=== PATIENT | male | born 1975 | race Caucasian/White ===

== ENCOUNTER 2019-04-22 12:27 | Emergency (ER) | payer OTHER ==
--- NOTE | 2019-04-22 12:44 | PDOC ---
Rapid Medical Evaluation Time Seen by Provider: 04/22/19 12:43 Medical Evaluation: Allergies Allergy/AdvReac Type Severity Reaction Status Date / Time No Known Allergies Allergy Verified 08/12/16 17:20 04/22/19 12:43 I have performed a brief in-person evaluation of this patient. The patient presents with a chief complaint of:Lower back and b/l LE pain x 3 days. No trauma. No neuro sxs. No infectious sxs. No pmhx Pertinent physical exam findings: Unremarkable I have ordered the following:nothing The patient will proceed to the ED for further evaluation. Discharge Disposition - Diagnosis Acute pain of left lower extremity - Referrals - Patient Instructions - Post Discharge Activity
[2019-04-22 12:46] VITALS: BP 142/68; PULSE 70; TEMP 97.8; BMI 26.4
[2019-04-22] MEDS ORDERED: KETOROLAC TROMETHAMINE 60 MG/2 ML VIAL ONE (13:18)
[2019-04-22] MEDS ORDERED: KETOROLAC TROMETHAMINE 60 MG/2 ML VIAL IM ONE (13:18)
--- NOTE | 2019-04-22 13:22 | PDOC ---
History of Present Illness - General Chief Complaint: Pain Stated Complaint: PAIN Time Seen by Provider: 04/22/19 12:43 History Source: Patient Exam Limitations: No Limitations - History of Present Illness Initial Comments: 04/22/19 13:22 CHIEF COMPLAINT: Lower back pain HISTORY OF PRESENT ILLNESS: This is a 43-year-old male denies medical history presents emergency Department with 3 days of lower back pain radiating to bilateral lower extremities. Patient reports the pain in his right leg stopped radiating yesterday and now the pain focuses on his left lower extremity. Been taking Tylenol and Motrin with relief of symptoms at home. He denies any urinary retention, incontinence of bladder or bowel, saddle anesthesia, foot drop, history of IV drug use or cancer. Patient denies any recent trauma. REVIEW OF SYSTEMS: GENERAL: Afebrile, denies any weakness RESPIRATORY: No cough, wheezing, or hemoptysis. CARDIAC: No chest pain or shortness of breath MUSCULOSKELETAL: Pain to generalized lower back. No point tenderness. Pain worse on left than right. SKIN : No erythema, no bruising, no deformity. GI/: Denies any abdominal pain, no urinary difficulty, incontinence or urinary retention. RECTAL: Denies any difficulty this A.m. NEUROLOGICAL: Denies any numbness or tingling. No neurosensory deficits. PHYSICAL EXAM: GENERAL: The patient is awake, alert, and fully oriented, in no acute distress. RESPIRATORY: Lungs clear bilaterally, no rhonchi wheezes or crackles CARDIAC: S1-S2 audible, no murmur rub or gallop MUSCULOSKELETAL: Pain to generalized lower back, nonradiating, no tingling or sensory deficit. Less than 2 second cap refill, +2 pedal pulses. No spinal point tenderness. Normal reflexive and no deficits to sensation or strength. GI/: Abdomen soft, nontender, nondistended. No rebound tenderness. No masses palpable. RECTAL: Deferred patient with no neurological findings SKIN: Warm, Dry, normal turgor, no erythema, no edema no bruising. Past History - Past Medical History Allergies/Adverse Reactions: Allergies Allergy/AdvReac Type Severity Reaction Status Date / Time No Known Allergies Allergy Verified 04/22/19 12:46 Home Medications: Ambulatory Orders Ibuprofen 600 mg PO TID #21 tablet 08/12/16 Methylprednisolone [Medrol Dose Blayne] 4 mg PO ASDIR #21 tablet 04/22/19 COPD: No - Surgical History Abdominal Surgery: No - Suicide/Smoking/Psychosocial Hx Smoking History: Never smoked Have you smoked in the past 12 months: No Information on smoking cessation initiated: No Hx Alcohol Use: No Drug/Substance Use Hx: No Substance Use Type: None *Physical Exam - Vital Signs Last Vital Signs Temp Pulse Resp BP Pulse Ox 97.8 F 70 16 142/68 100 04/22/19 12:44 04/22/19 12:44 04/22/19 12:44 04/22/19 12:44 04/22/19 12:44 Medical Decision Making - Medical Decision Making 04/22/19 13:27 A/P: 43-year-old male with lower back pain and left-sided sciatica Toradol 60 mg IM now Discharge home with instructions to take [id number] pain medication prescription for Medrol Dosepak. *DC/Admit/Observation/Transfer Diagnosis at time of Disposition: Lower back pain Qualifiers: Chronicity: acute Back pain laterality: midline Sciatica presence: with sciatica Sciatica laterality: sciatica of left side Qualified Code(s): M54.42 - Lumbago with sciatica, left side - Discharge Dispostion Disposition: HOME Condition at time of disposition: Fair Decision to Admit order: No - Prescriptions Prescriptions: Methylprednisolone [Medrol Dose Blayne] 4 mg PO ASDIR #21 tablet - Referrals - Patient Instructions Printed Discharge Instructions: DI for Sciatica Additional Instructions: Rest. Take Tylenol or Aleve as needed for pain. Follow manufacturers instructions for appropriate dosage. Take Medrol Dosepak as directed. Warm moist heat applied to your back may help alleviate pain. Return to emergency department for discoloration of the foot, numbness or tingling to the foot, worsening pain, or any other concerns. Thank you very much for choosing us to provide your emergent healthcare needs. - Post Discharge Activity
== END 2019-04-22 13:38 | disposition home or self-care (01) ==
LOC: JERFT 12:27
PROC: 3E0233Z Introduction of Anti-inflammatory into Muscle, Percutaneous Approach (ICD-10-PCS; principal; 2019-04-22)
DX: M54.42 Lumbago with sciatica, left side (principal)
CPT/HCPCS: 96372; 99282-25

== ENCOUNTER 2019-08-12 11:57 | Emergency (ER) | payer OTHER ==
[2019-08-12 12:02] VITALS: BP 129/74; PULSE 70; TEMP 98.6; BMI 31.3
--- NOTE | 2019-08-12 12:02 | PDOC ---
Rapid Medical Evaluation Time Seen by Provider: 08/12/19 11:59 Medical Evaluation: Allergies Allergy/AdvReac Type Severity Reaction Status Date / Time No Known Allergies Allergy Verified 04/22/19 12:46 08/12/19 11:59 CC: left upper back pain radiating to chest. Travel to [place] 3 weeks ago. PE: VSS. AF. No tenderness. Lungs CTAB. Orders: CXR, labs, urine, ekg The patient will proceed to the ER for continued Evaluation. Discharge Disposition - Diagnosis Upper back pain on left side - Referrals - Patient Instructions - Post Discharge Activity
[2019-08-12] MEDS ORDERED: KETOROLAC TROMETHAMINE 30 MG/1 ML VIAL IVPUSH ONE (12:33)
[2019-08-12] MEDS ORDERED: KETOROLAC TROMETHAMINE 30 MG/1 ML VIAL ONE (12:39)
[2019-08-12 12:54] LABS: BASO % 0.6 % (0-2.0); EOS % 2.3 % (0-4.5); HEMATOCRIT 43.4 % (35.4-49); HEMOGLOBIN 14.7 GM/dL (11.7-16.9); LYMPH % 31.2 % (8-40); MCH 28.9 pg (25.7-33.7); MCHC 33.9 g/dl (32.0-35.9); MEAN CELL VOLUME 85.3 fl (80-96); MEAN PLT VOLUME 8.2 fl (7.5-11.1); MONO % 8.4 % (3.8-10.2); NEUT % 57.5 % (42.8-82.8); PLATELET COUNT 259 K/MM3 (134-434); RBC 5.09 M/mm3 (4.00-5.60); RDW 13.4 % (11.9-15.9); WHITE BLOOD COUNT 3.5 K/mm3 (4.0-10.0)
[2019-08-12 13:16] LABS: EPI CELLS 0.1 /HPF (0-5/HPF); HYALINE CASTS 0 /lpf (0-8); PH,URINE 5.5 (5.0-8.0); URINE APPEARANCE CLEAR; URINE BACTERIA 0.8 /hpf (NEGATIVE); URINE BILIRUBIN NEGATIVE (NEGATIVE); URINE COLOR YELLOW; URINE GLUCOSE (UA) NEGATIVE (NEGATIVE); URINE KETONE NEGATIVE (NEGATIVE); URINE LEUK ESTERASE NEGATIVE (NEGATIVE); URINE NITRITE NEGATIVE (NEGATIVE); URINE PROTEIN NEGATIVE (NEGATIVE); URINE RBC 5 /hpf (0-4); URINE UROBILINOGEN 0.2 mg/dL (0.2-1.0); URINE WBC 0 /hpf (0-5)
[2019-08-12 13:19] LABS: ALBUMIN 4.2 g/dl (3.4-5.0); BILIRUBIN,TOTAL 0.5 mg/dL (0.2-1); BLOOD UREA NITROGEN 11.5 mg/dL (7-18); CALCIUM 9.4 mg/dL (8.5-10.1); TOT PROT 8.3 g/dl (6.4-8.2)
[2019-08-12 13:20] LABS: INR 0.95 (0.83-1.09); PROTHROMBIN TIME (PATIENT) 11.2 SEC (9.7-13.0)
[2019-08-12 13:23] LABS: ACTIVATED PTT 33.7 SECONDS (25.2-36.5)
--- NOTE | 2019-08-12 13:33 | PDOC ---
History of Present Illness - General Chief Complaint: Pain Stated Complaint: LT SHOULDER /BACK PAIN Time Seen by Provider: 08/12/19 11:59 History Source: Patient Exam Limitations: No Limitations - History of Present Illness Initial Comments: 08/12/19 13:27 43-year-old male presents ED with left chest pain which he describes a dull sensation worsened with deep breathing and movement. Patient states symptoms began 2 days ago upon awakening. Patient also states recent travel to [place] 3 weeks ago. Patient denies shortness of breath, palpitations, dizziness, cardiac history, leg swelling, or headache. Patient states took nothing for the pain and decided come to the ER for further evaluation. Patient denies smoking history 08/12/19 13:28 Is this a multiple visit Asthma Patient?: No Timing/Duration: other (2 days) Associated Symptoms: reports: other Past History - Travel Traveled outside of the country in the last 30 days: Yes Close contact w/someone who was outside of country & ill: No - Past Medical History Allergies/Adverse Reactions: Allergies Allergy/AdvReac Type Severity Reaction Status Date / Time No Known Allergies Allergy Verified 08/12/19 12:02 Home Medications: Ambulatory Orders Ibuprofen 600 mg PO TID #21 tablet 08/12/16 Methylprednisolone [Medrol Dose Blayne] 4 mg PO ASDIR #21 tablet 04/22/19 COPD: No - Surgical History Abdominal Surgery: No - Psycho Social/Smoking Cessation Hx Smoking History: Never smoked Have you smoked in the past 12 months: No Hx Alcohol Use: No Drug/Substance Use Hx: No Substance Use Type: None Review of Systems - Review of Systems Able to Perform ROS?: Yes Constitutional: No: Symptoms Reported HEENTM: No: Symptoms Reported Respiratory: No: Symptoms reported Cardiac (ROS): Yes: Chest Pain ABD/GI: No: Symptoms Reported : No: Symptoms Reported Musculoskeletal: No: Symptoms Reported Integumentary: No: Symptoms Reported Neurological: No: Symptoms reported Endocrine: No: Symptoms Reported Hematologic/Lymphatic: No: Symptoms Reported *Physical Exam - Vital Signs Last Vital Signs Temp Pulse Resp BP Pulse Ox 98.6 F 70 18 129/74 100 08/12/19 11:59 08/12/19 11:59 08/12/19 11:59 08/12/19 11:59 08/12/19 11:59 - Physical Exam Comments: 08/12/19 13:09 Chief complaint: Left-sided chest achiness worsened with deep breathing and movement since awakening 2 days ago. Patient recent travel 3 weeks ago to [place] No other complaints Exam: Reproducible left chest tenderness at the sternal border and left shoulder blade, vital signs stable lungs clear Plan: Labs, EKG, Toradol d-dimer General Appearance: Yes: Nourished, Appropriately Dressed. No: Apparent Distress HEENT: positive: EOMI, Excessive drooling. negative: Pale Conjunctivae Respiratory/Chest: positive: Chest Tender (Left sternal), Lungs Clear, Normal Breath Sounds. negative: Respiratory Distress, Accessory Muscle Use Cardiovascular: positive: Regular Rhythm, Regular Rate. negative: Murmur Gastrointestinal/Abdominal: positive: Soft. negative: Tenderness Musculoskeletal: negative: CVA Tenderness Extremity: positive: Normal Capillary Refill Integumentary: positive: Normal Color, Warm, Moist Neurologic: positive: Motor Strength 5/5 (ambulatory) ED Treatment Course - LABORATORY CBC & Chemistry Diagram: 08/12/19 12:36 08/12/19 12:36 - ADDITIONAL ORDERS Additional order review: Laboratory Results 08/12/19 08/12/19 08/12/19 12:36 12:36 12:36 PT with INR INR PTT (Actin FS) Sodium 137 Potassium 4.0 Chloride 101 Carbon Dioxide 31 Anion Gap 4 L BUN 11.5 Creatinine 1.0 Est GFR (CKD-EPI)AfAm 107.87 Est GFR (CKD-EPI)NonAf 93.07 Random Glucose 98 Calcium 9.4 Magnesium 2.0 Total Bilirubin 0.5 AST 13 L ALT 41 Alkaline Phosphatase 64 Creatine Kinase 86 Troponin I < 0.02 Total Protein 8.3 H Albumin 4.2 Urine Color Yellow Urine Appearance Clear Urine pH 5.5 Ur Specific Monarch 1.014 Urine Protein Negative Urine Glucose (UA) Negative Urine Ketones Negative Urine Blood 1+ H Urine Nitrite Negative Urine Bilirubin Negative Urine Urobilinogen 0.2 Ur Leukocyte Esterase Negative Urine WBC (Auto) 0 Urine RBC (Auto) 5 Urine Casts (Auto) 0 U Epithel Cells (Auto) 0.1 Urine Bacteria (Auto) 0.8 08/12/19 12:36 PT with INR 11.20 INR 0.95 PTT (Actin FS) 33.7 Sodium Potassium Chloride Carbon Dioxide Anion Gap BUN Creatinine Est GFR (CKD-EPI)AfAm Est GFR (CKD-EPI)NonAf Random Glucose Calcium Magnesium Total Bilirubin AST ALT Alkaline Phosphatase Creatine Kinase Troponin I Total Protein Albumin Urine Color Urine Appearance Urine pH Ur Specific Monarch Urine Protein Urine Glucose (UA) Urine Ketones Urine Blood Urine Nitrite Urine Bilirubin Urine Urobilinogen Ur Leukocyte Esterase Urine WBC (Auto) Urine RBC (Auto) Urine Casts (Auto) U Epithel Cells (Auto) Urine Bacteria (Auto) 08/12/19 12:36 RBC 5.09 MCV 85.3 MCHC 33.9 RDW 13.4 MPV 8.2 Neutrophils % 57.5 Lymphocytes % 31.2 Monocytes % 8.4 Eosinophils % 2.3 Basophils % 0.6 - Medications Given in the ED: ED Medications Discontinued Medications Generic Name Dose Route Start Last Admin Trade Name Freq PRN Reason Stop Dose Admin Ketorolac Tromethamine 30 mg 08/12/19 12:33 08/12/19 12:55 Toradol Injection - IVPUSH 08/12/19 12:34 30 mg ONCE ONE Administration Medical Decision Making - Medical Decision Making 08/12/19 13:13 Chief complaint: Left-sided chest achiness worse with deep breathing and movement since Sunday morning no other complaints. Recent travel from [place] 3 weeks ago no meds taken Exam: Reproducible left-sided chest tenderness at the sternal border vital signs stable lungs clear Plan: Labs, EKG, Toradol and d-dimer. Will consider imaging once d-dimer has resulted 08/12/19 13:45 Laboratory Tests 08/12/19 08/12/19 08/12/19 12:36 12:36 12:36 WBC 3.5 L Hgb 14.7 Hct 43.4 PT with INR 11.20 INR 0.95 PTT (Actin FS) 33.7 D-Dimer Sodium Potassium Chloride Carbon Dioxide Anion Gap Creatinine Est GFR (CKD-EPI)NonAf Random Glucose Calcium Magnesium Total Bilirubin AST ALT Alkaline Phosphatase Creatine Kinase 86 Troponin I < 0.02 Total Protein Albumin Urine Blood Ur Leukocyte Esterase Urine WBC (Auto) Urine RBC (Auto) 08/12/19 08/12/19 08/12/19 12:36 12:36 12:36 WBC Hgb Hct PT with INR INR PTT (Actin FS) D-Dimer 327 Sodium 137 Potassium 4.0 Chloride 101 Carbon Dioxide 31 Anion Gap 4 L Creatinine 1.0 Est GFR (CKD-EPI)NonAf 93.07 Random Glucose 98 Calcium 9.4 Magnesium 2.0 Total Bilirubin 0.5 AST 13 L ALT 41 Alkaline Phosphatase 64 Creatine Kinase Troponin I Total Protein 8.3 H Albumin 4.2 Urine Blood 1+ H Ur Leukocyte Esterase Negative Urine WBC (Auto) 0 Urine RBC (Auto) 5 Chest x-ray shows no acute pathology. patient states feeling better. Will discharge home Discharge - Discharge Information Problems reviewed: Yes Clinical Impression/Diagnosis: Chest wall pain Condition: Improved Disposition: HOME - Follow up/Referral - Patient Discharge Instructions Patient Printed Discharge Instructions: DI for Costochondritis Additional Instructions: Please take 650 mg of Tylenol every 8 hours for discomfort. Apply mild massage to area and apply heating pad to the area to alleviate discomfort. You may also try avoiding usage of the left arm for the next few days to allow rest and healing - Post Discharge Activity
--- NOTE | 2019-08-12 15:00 | EKG ---
Test Reason : Blood Pressure : / mmHG Vent. Rate : 060 BPM Atrial Rate : 060 BPM P-R Int : 140 ms QRS Dur : 092 ms QT Int : 414 ms P-R-T Axes : 077 084 054 degrees QTc Int : 414 ms NORMAL SINUS RHYTHM NORMAL ECG NO PREVIOUS ECGS AVAILABLE Confirmed by MD Harry, Lonny ([id number]) on 08/12/2019 3:00:12 PM Referred By: Confirmed By:Lonny Mcdonald MD
== END 2019-08-12 14:00 | disposition home or self-care (01) ==
LOC: JER 11:57
PROC: 3E0333Z Introduction of Anti-inflammatory into Peripheral Vein, Percutaneous Approach (ICD-10-PCS; principal; 2019-08-12)
DX: M94.0 Chondrocostal junction syndrome [Tietze] (principal)
CPT/HCPCS: 36415; 71046-TC-FY; 80053; 81003; 82550; 83735; 84484; 85025; 85379; 85610; 85730; 93005; 93010; 96374; 99284-25

== ENCOUNTER 2023-08-17 18:41 | Emergency (ER) | payer OTHER ==
[2023-08-17 19:04] VITALS: BP 123/62; PULSE 100; RESP 18; TEMP 98.8; BMI 23.9
[2023-08-17] MEDS ORDERED: ACETAMINOPHEN 500 MG TABLET (FP) PO ONE (19:33)
[2023-08-17] MEDS ORDERED: ACETAMINOPHEN 325 MG TABLET (FP) ONE (20:47)
== END 2023-08-17 21:45 | disposition home or self-care (01) ==
LOC: JER 18:41 → JERFT 18:41
DX: R51.9 Headache, unspecified (principal); R05.9 Cough, unspecified; R09.81 Nasal congestion; J06.9 Acute upper respiratory infection, unspecified; J02.9 Acute pharyngitis, unspecified; J34.89 Other specified disorders of nose and nasal sinuses
CPT/HCPCS: 99283-25

== ENCOUNTER 2023-10-19 08:23 | Day surgery (SDC) | payer OTHER ==
[2023-10-09 10:12] VITALS: BMI 27.9
[2023-10-19] MEDS ORDERED: ACETAMINOPHEN INJECTION 100 ML IVPB ONE (09:08)
[2023-10-19] MEDS ORDERED: MIDAZOLAM HCL 2 MG/2 ML SINGLE DOSE VIAL ONE (09:08)
[2023-10-19] MEDS ORDERED: PROPOFOL 40 ML ONE (09:15)
[2023-10-19] MEDS ORDERED: BUPIVACAINE HCL/PF 0.5% (5MG/ML) 10 ML VIAL ONE (09:18)
[2023-10-19] MEDS ORDERED: LIDOCAINE 1%/EPI 1:100000 (50 ML MULTI DOSE VIAL) ONE (09:18)
[2023-10-19] MEDS ORDERED: BUPIVACAINE HCL/PF 0.25% (2.5MG/ML) 10 ML VIAL ONE (09:18)
[2023-10-19] MEDS ORDERED: ceFAZolin SODIUM 1 GM VIAL ONE ×2 (09:22)
[2023-10-19] MEDS ORDERED: ACETAMINOPHEN 325 MG TABLET (FP) PO PRN (10:31)
[2023-10-19] MEDS ORDERED: oxyCODONE HCL 5 MG TABLET PO PRN (10:31)
[2023-10-19] MEDS ORDERED: ONDANSETRON 4 MG/2 ML VIAL IVPUSH PRN (10:31)
[2023-10-19] MEDS ORDERED: LACTATED RINGERS SOLUTION 1,000 ML IV SCH (10:45)
[2023-10-19 11:20] VITALS: RESP 16; TEMP 97.6
[2023-10-19 12:14] VITALS: BP 114/72; PULSE 82
== END 2023-10-19 12:05 | disposition home or self-care (01) ==
LOC: FASU 08:23
PROVIDERS: ATTEND Orthopaedic Surgery
PROC: 0SBC4ZZ Excision of Right Knee Joint, Percutaneous Endoscopic Approach (ICD-10-PCS; principal; 2023-10-19 09:37)
PROC: 0SQC4ZZ Repair Right Knee Joint, Percutaneous Endoscopic Approach (ICD-10-PCS; 2023-10-19 09:37)
DX: S83.242D Other tear of medial meniscus, current injury, left knee, subsequent encounter (principal); M65.9 Synovitis and tenosynovitis, unspecified; M94.20 Chondromalacia, unspecified site
CPT/HCPCS: 94760

== ENCOUNTER 2025-02-11 11:03 | Emergency (ER) | payer OTHER ==
[2025-02-11 11:11] VITALS: BP 125/67; PULSE 74; RESP 18; TEMP 98; BMI 28.1
[2025-02-11] MEDS ORDERED: ACETAMINOPHEN 500 MG TABLET (FP) ONE (12:26)
[2025-02-11] MEDS ORDERED: DIPHTH,PERTUSS(ACELL),TET 0.5 ML DISP.SYRIN IM ONE (12:26)
[2025-02-11] MEDS: DIPHTH,PERTUSS(ACELL),TET 0.5 ML DISP.SYRIN IM ONE (12:30)
[2025-02-11] MEDS: ACETAMINOPHEN 500 MG TABLET (FP) PO ONE (12:32)
== END 2025-02-11 12:42 | disposition home or self-care (01) ==
LOC: JERFT 11:03
PROC: 0HQ0XZZ Repair Scalp Skin, External Approach (ICD-10-PCS; principal; 2025-02-11)
PROC: 3E0234Z Introduction of Serum, Toxoid and Vaccine into Muscle, Percutaneous Approach (ICD-10-PCS; 2025-02-11)
DX: S01.01XA Laceration without foreign body of scalp, initial encounter (principal); Z23 Encounter for immunization; W22.8XXA Striking against or struck by other objects, initial encounter
CPT/HCPCS: 12001-25; 90471; 90715; 99284-25

== ENCOUNTER 2025-02-18 15:58 | Emergency (ER) | payer OTHER ==
[2025-02-18 16:03] VITALS: BP 102/60; PULSE 69; RESP 18; TEMP 98.2; BMI 27.6
== END 2025-02-18 16:28 | disposition home or self-care (01) ==
LOC: JER 15:58
DX: Z48.02 Encounter for removal of sutures (principal)
CPT/HCPCS: 99281-25